=== PATIENT | female | born 1995 | race Caucasian/White ===

== ENCOUNTER 2017-04-13 00:19 | Emergency (ER) | payer OTHER ==
[2017-04-13 02:20] LABS: Hematocrit 40 % (35-47); Hemoglobin 13.3 g/dl (12.0-16.0); Mean Corpuscular HGB Conc 34 g/dl (31-36); Mean Corpuscular Hemoglobin 32 pg (27-31); Mean Corpuscular Volume 94 fL (80-97); Mean Platelet Volume 8 um3 (7.4-10.4); Red Blood Count 4.24 10^6/ul (4.0-5.4); Red Cell Distribution Width 13 % (10.5-15); White Blood Count 4.7 10^3/ul (3.5-10.8)
[2017-04-13 02:31] LABS: Albumin 4.7 g/dL (3.2-5.2); EGFR African American 118.8 (>60); EGFR Non-African American 92.4 (>60); Globulin 2.1 g/dL (2-4); Potassium 3.6 mmol/L (3.5-5.0); Total Bilirubin 0.3 mg/dL (0.2-1.0); Total Protein 6.8 g/dL (6.4-8.9)
[2017-04-13 06:14] VITALS: BP 108/68
--- NOTE | 2017-04-13 06:41 | ED ---
Daly Jaramillo SooYoung, scribed for Srikanth Curiel MD on 04/13/17 at 0406 . Substance Abuse/Use - HPI Summary HPI Summary: LEVEL 5 CAVEAT - ETOH INTOXICATION, UNRESPONSIVE A 21 y/o F BIBNolberto presents to ED with ETOH intoxication. At bedside, pt is minimally arousable. Pt denies pain. Associated sx: n/v. - History Of Current Complaint Chief Complaint: EDSubstanceAbuse Stated Complaint: ALCOHOL CONSUMPTION Time Seen by Provider: 04/13/17 02:17 Ingestion History: Type/Name Of Drug - ETOH Overdose Characteristics: Oral - Allergies/Home Medications Allergies/Adverse Reactions: Allergies Allergy/AdvReac Type Severity Reaction Status Date / Time No Known Allergies Allergy Verified 04/13/17 01:16 PMH/Surg Hx/FS Hx/Imm Hx Previously Healthy: No - LEVEL 5 CAVEAT - ETOH INTOXICATION, UNRESPONSIVE Infectious Disease History: No Infectious Disease History: Denies: Traveled Outside the [place] in Last 30 Days - Family History Family History: LEVEL 5 CAVEAT - ETOH INTOXICATION, UNRESPONSIVE - Social History Occupation: Student Alcohol Use: unknown frequency Hx Substance Use: No Substance Use Type: Reports: None Smoking Status (MU): Unknown if Ever Smoked Review of Systems - ROS Summary Review of Systems Summary: LEVEL 5 CAVEAT - ETOH INTOXICATION, UNRESPONSIVE Positive: Vomiting, Nausea All Other Systems Reviewed And Are Negative: No Physical Exam - Summary Physical Exam Summary: The patient is well-nourished in no acute distress and in no acute pain. The skin is warm and dry and skin color reflects adequate perfusion. Good skin turgor. HEENT: The head is normocephalic and atraumatic. The pupils are equal and reactive. The conjunctivae are clear and without drainage. Nares are patent and without drainage. Mouth reveals moist mucous membranes and the throat is without erythema and exudate. The external ears are intact. Neck is supple with full range of motion and non-tender. There is no neck vein distension. Respiratory: Chest is non-tender. Lungs are clear to auscultation and breath sounds are symmetrical and equal. Cardiovascular: Heart is regular rate and rhythm. There is no murmur or rub auscultated. There is no peripheral edema and pulses are symmetrical and equal. Abdomen: The abdomen is soft and non-tender. There are normal bowel sounds heard in all four quadrants. Musculoskeletal: Extremities are non-tender with full range of motion. There is good capillary refill. There is no peripheral edema or calf tenderness elicited. Neurological: The patient has symmetrical motor strength in all four extremities. Cranial nerves are grossly intact. Triage Information Reviewed: Yes Vital Signs On Initial Exam: Initial Vitals BP 100/56 04/13/17 00:48 Vital Signs Reviewed: Yes - Moni Coma Scale Coma Scale Total: 15 Diagnostics - Vital Signs Vital Signs Temp Pulse Resp BP Pulse Ox 04/13/17 02:05 93 97/40 100 04/13/17 02:04 92 100 04/13/17 01:32 84/35 04/13/17 01:30 75 82/39 98 04/13/17 01:13 80 85/36 98 04/13/17 01:07 97.2 F 80 16 88/69 99 04/13/17 01:03 87 98 04/13/17 01:00 88/45 04/13/17 00:59 83 99 04/13/17 00:50 95 95 04/13/17 00:48 100/56 - Laboratory Lab Results: Lab Results 04/13/17 04/13/17 Range/Units 02:00 02:00 WBC 4.7 (3.5-10.8) 10^3/ul RBC 4.24 (4.0-5.4) 10^6/ul Hgb 13.3 (12.0-16.0) g/dl Hct 40 (35-47) % MCV 94 (80-97) fL MCH 32 H (27-31) pg MCHC 34 (31-36) g/dl RDW 13 (10.5-15) % Plt Count 211 (150-450) 10^3/ul MPV 8 (7.4-10.4) um3 Neut % (Auto) 65.1 (38-83) % Lymph % (Auto) 25.4 (25-47) % [place] % (Auto) 6.3 (1-9) % Eos % (Auto) 1.7 (0-6) % Baso % (Auto) 1.5 (0-2) % Absolute Neuts (auto) 3.1 (1.5-7.7) 10^3/ul Absolute Lymphs (auto) 1.2 (1.0-4.8) 10^3/ul Absolute Monos (auto) 0.3 (0-0.8) 10^3/ul Absolute Eos (auto) 0.1 (0-0.6) 10^3/ul Absolute Basos (auto) 0.1 (0-0.2) 10^3/ul Absolute Nucleated RBC 0.01 10^3/ul Nucleated RBC % 0.1 Sodium 140 (133-145) mmol/L Potassium 3.6 (3.5-5.0) mmol/L Chloride 108 (101-111) mmol/L Carbon Dioxide 24 (22-32) mmol/L Anion Gap 8 (2-11) mmol/L BUN 12 (6-24) mg/dL Creatinine 0.80 (0.51-0.95) mg/dL Est GFR ( Amer) 118.8 (>60) Est GFR (Non-Af Amer) 92.4 (>60) BUN/Creatinine Ratio 15.0 (8-20) Glucose 87 (70-100) mg/dL Calcium 9.0 (8.6-10.3) mg/dL Total Bilirubin 0.30 (0.2-1.0) mg/dL AST 20 (13-39) U/L ALT 13 (7-52) U/L Alkaline Phosphatase 50 (34-104) U/L Total Protein 6.8 (6.4-8.9) g/dL Albumin 4.7 (3.2-5.2) g/dL Globulin 2.1 (2-4) g/dL Albumin/Globulin Ratio 2.2 (1-3) Serum Alcohol 184 H (<10) mg/dL Result Diagrams: 04/13/17 02:00 04/13/17 02:00 Lab Statement: Any lab studies that have been ordered have been reviewed, and results considered in the medical decision making process. Re-Evaluation - Re-Evaluation 1 Re-Evaluation Time: 06:25 Change: Improved Comment: Pt is awake, oriented. States she is feeling better. Course/Dx - Course Course Of Treatment: Pt is awake, oriented and ambulating. Will D/C home. - Diagnoses Provider Diagnoses: Acute alcohol intoxication Discharge - Discharge Plan Condition: Stable Disposition: HOME Patient Education Materials: Abuse of Alcohol (ED) [facility] Provider[facility] - Additional Instructions: Follow up at the [facility] in 2 days. The documentation as recorded by the Daly reyes SooYoung accurately reflects the service I personally performed and the decisions made by me, Srikanth Curiel MD.
== END 2017-04-13 06:40 | disposition home or self-care (01) ==
LOC: ED 00:19
DX: F10.129 Alcohol abuse with intoxication, unspecified (principal); Y90.6 Blood alcohol level of 120-199 mg/100 ml; R11.2 Nausea with vomiting, unspecified
CPT/HCPCS: 36415; 80053; 80320; 85025; 99283; G0480